=== PATIENT | male | born 1995 | race Caucasian/White ===

== ENCOUNTER → 2016-07-17 | Outpatient (CLI) | payer BC | LOC: FIMAGING 14:01 | PROVIDERS: ATTEND Family Medicine | DX: R22.0 Localized swelling, mass and lump, head (principal) ==

== ENCOUNTER 2017-01-13 15:07 | Emergency (ER) | payer BC, OTHER ==
[2017-01-13 15:14] VITALS: TEMP 97.7
--- NOTE | 2017-01-13 16:11 | EDPHY ---
H & P Time Seen by Provider: 01/13/17 15:53 HPI/ROS: CHIEF COMPLAINT: A cough, sore throat HISTORY OF PRESENT ILLNESS: Patient is a 21-year-old male who presents emergency department with cough and sore throat opens 2 weeks. The patient states his cough is productive of green sputum. It has been persistent slightly worse tonight. He denies shortness of breath. No chest pain. Patient has bilateral throat pain. It is moderate. It is worse with swallowing. No abdominal pain. No nausea or vomiting. REVIEW OF SYSTEMS: My complete review of systems is negative except as mentioned in the HPI. Past Medical/Surgical History: Denies Past surgical history: T and a, left humeral surgery Social history: Patient smokes marijuana regularly Smoking Status: Current some day smoker Physical Exam: Vitals noted GENERAL: Well-appearing, in no acute distress, alert. HEENT: Eyes normal to inspection, normal pharynx, no signs of dehydration. NECK: No thyromegaly, no lymphadenopathy, supple. RESPIRATORY: Clear to auscultation bilaterally, no rales, rhonchi or wheezing. CVS: Regular rate and rhythm, no rubs, murmurs, or gallops. ABDOMEN: Soft, nontender, nondistended, no organomegaly. BACK: Normal to inspection, no CVA tenderness. SKIN: Normal color, no rash, warm, dry. No pallor. EXTREMITIES: No pedal edema, no calf tenderness, no Homans sign or cords, no joint swelling. NEURO/PSYCH: Alert and oriented, normal mood and affect Constitutional: Initial Vital Signs Temperature (C) 36.5 C 01/13/17 15:12 Heart Rate 59 L 01/13/17 15:12 Respiratory Rate 20 01/13/17 15:12 Blood Pressure 130/68 H 01/13/17 15:12 O2 Sat (%) 97 01/13/17 15:12 O2 Delivery Mode Room Air Allergies/Adverse Reactions: No Known Allergies Allergy (Unverified 03/27/14 19:20) Home Medications: Medication Instructions Recorded AZITHROMYCIN [Z-PACK] 250 mg PO DAILY #1 packet 01/13/17 predniSONE 20 mg PO DAILY 4 Days 01/13/17 Medical Decision Making ED Course/Re-evaluation: In the emergency department I discussed possible etiologies with the patient. I answered all her questions. Patient has had a chronic cough for 2 weeks. He smokes regularly. Because of this he will be given a prescription for azithromycin as well as steroids. I discussed the plan with the patient. He is given warnings prior to leaving. He will return with worsening symptoms. Differential Diagnosis: My differential includes but is not limited to chronic bronchitis, acute bronchitis, pneumonia, pharyngitis Departure - Departure Disposition: Home, Routine, Self-Care Clinical Impression: Acute bronchitis Qualifiers: Bronchitis organism: unspecified organism Qualified Code(s): J20.9 - Acute bronchitis, unspecified Condition: Good Instructions: Acute Bronchitis (ED) Referrals: Joesph Nelson, [Medical Doctor] - 5-7 days, if not improved Prescriptions: AZITHROMYCIN [Z-PACK] 250 mg PO DAILY #1 packet predniSONE 20 mg PO DAILY 4 Days
[2017-01-13] MEDS ORDERED: predniSONE 20 MG TAB PO ONE (16:27)
[2017-01-13 16:34] VITALS: BP 115/78; PULSE 82; RESP 16; O2SAT 98
== END 2017-01-13 16:34 | disposition home or self-care (01) ==
DX: J20.9 Acute bronchitis, unspecified (principal); F17.200 Nicotine dependence, unspecified, uncomplicated